=== PATIENT | female | born 1970 | race Caucasian/White ===

== ENCOUNTER 2020-02-16 14:48 | Outpatient (CLI) | payer OTHER ==
[~2020-02-16 14:48] MED LIST: OMNIPAQUE 350 MG/ML, 100ML BOTTLE ONE
== END 2020-02-16 23:59 | disposition home or self-care (01) ==
LOC: RAD 14:48
PROVIDERS: ATTEND Family Medicine
DX: K80.20 Calculus of gallbladder without cholecystitis without obstruction (principal)
CPT/HCPCS: 74177; Q9967